=== PATIENT | male | born 1945 | race Two or more races ===

== ENCOUNTER 2021-04-28 16:44 | Inpatient (IN) | payer MEDICARE, OTHER ==
[~2021-04-28] VITALS: Ht 167.6 cm; Wt 73.9 kg
--- NOTE | 2021-04-28 18:01 | NUR ---
PT CAME IN C/O LLQ PAIN AND CONSTIPATION FOR 7 DAYS.PT IS A/O X4. PT CONNECTED TO MONITOR.
[2021-04-28 18:55] LABS: BILIRUBIN,URINE SMALL (NEGATIVE); COLOR,URINE YELLOW (YELLOW); LEUKOCYTE ESTERASE ,URINE NEGATIVE (NEGATIVE); NITRITE, URINE NEGATIVE (NEGATIVE); PROTEIN,URINE 100 mg/dl (NEGATIVE); UGLUCOSE NEGATIVE (NEGATIVE); UROBILINOGEN,URINE 0.2 EU/dL (0.2)
[2021-04-28] MEDS ORDERED: MORPHINE SULFATE INJ 2 MG/ML DISP.SYRIN IV ONE ×2 (19:00→21:30)
[2021-04-28 19:02] LABS: CALCIUM, SERUM 9.2 mg/dL (8.5-10.1); CARBON DIOXIDE 25 mmol/L (21-32); CHLORIDE 103 mmol/L (98-107); GLUCOSE 99 mg/dL (74-106); POTASSIUM 3.6 mmol/L (3.5-5.1); SODIUM SERUM 137 mmol/L (136-145); UREA NITROGEN, BLOOD 38 mg/dL (7-18)
[2021-04-28] MEDS ORDERED: MORPHINE SULFATE INJ 2 MG/ML DISP.SYRIN ONE ×2 (19:06→21:29)
[2021-04-28 19:08] LABS: ALANINE AMINOTRANSFERASE 25 U/L (12-78); ALBUMIN 4.2 g/dL (3.4-5.0); ALKALINE PHOSPHATASE 76 U/L (46-116); ASPARTATE AMINOTRANSFERASE 18 U/L (15-37); BILIRUBIN,DIRECT 0.3 mg/dL (0.0-0.2); BILIRUBIN,TOTAL 2.3 mg/dL (0.2-1.0); LIPASE 71 U/L (73-393); TOTAL PROTEIN, SERUM 8.1 g/dL (6.4-8.2)
[2021-04-28 19:29] LABS: BACTERIA,URINE None seen /HPF (None Seen); SQUAMOUS EPITHELIAL CELL,UR Few /HPF (None Seen); WBC,URINE 0-2 /HPF (0-3)
[2021-04-28 19:30] LABS: HYALINE CASTS, URINE Few /LPF (None Seen); MUCUS,URINE Moderate /LPF (None Seen)
[2021-04-28 19:43] LABS: BASOPHILS % (AUTO) 0.4 % (0.0-2.0); EOSINOPHILS % (AUTO) 1.9 % (0.0-6.0); HEMATOCRIT 44 % (39-51); HEMOGLOBIN 14.7 g/dL (13.5-17.5); LYMPHOCYTES # (AUTO) 1.3 K/uL (0.8-4.8); LYMPHOCYTES % (AUTO) 14.5 % (20.0-44.0); MEAN CORPUSCULAR HGB CONC 33 g/dl (31.0-36.0); MEAN CORPUSCULAR VOLUME 92 fL (80-96); MONOCYTES # (AUTO) 0.8 K/uL (0.1-1.30); NEUTROPHILS # (AUTO) 6.6 K/uL (1.8-8.9); NEUTROPHILS % (AUTO) 74.2 % (43.0-81.0); PLATELET COUNT (AUTO) 178 K/uL (150-450); RED BLOOD CELL COUNT(AUTO) 4.82 MIL/uL (4.5-6.0); WHITE BLOOD COUNT (AUTO) 8.9 K/uL (4.3-11.0)
--- NOTE | 2021-04-28 20:08 | NUR ---
PT TAKEN TO CT VIA REECE
[2021-04-28] MEDS ORDERED: CEFEPIME 1 GM VIAL ONE (21:28)
[2021-04-28] MEDS ORDERED: METRONIDAZOLE 500MG/ NS 100ML 100 ML IV ONE ×2 (21:28→21:30)
[2021-04-28] MEDS ORDERED: CEFEPIME 1 GM in IV D5W 50 ML IV ONE (21:30)
[2021-04-28] MEDS ORDERED: IV NS 0.9% 500 ML BAG IV ONE (21:30)
--- NOTE | 2021-04-28 21:56 | NUR ---
PT WILL GO TO OR THEN AFTER ROOM 306 PER RN COWLMAN
--- NOTE | 2021-04-28 22:26 | NUR ---
OUTBOUND SUPERVISOR AT PT'S BEDSIDE
[2021-04-28] MEDS ORDERED: MAGNESIUM HYDROXIDE 30 ML UDC PO PRN (22:30)
[2021-04-28] MEDS ORDERED: MAG HYDROX/AL HYDROX/SIMETH 30 ML UDC PO PRN (22:30)
[2021-04-28] MEDS ORDERED: ONDANSETRON HCL/PF 4 MG/2 ML VIAL IVP PRN (22:30)
[2021-04-28] MEDS ORDERED: Z GUARD REMEDY 4 OZ OINT TP PRN (22:30)
[2021-04-28] MEDS ORDERED: IV D5/0.45 NACL 1,000 ML IV PRN (22:30)
[2021-04-28] MEDS ORDERED: ACETAMINOPHEN 325 MG TABLET PO PRN (22:30)
[2021-04-28] MEDS: ENOXAPARIN SODIUM 30 MG/0.3 ML DISP.SYRIN SQ SCH (22:30)
[2021-04-28] MEDS ORDERED: FENTANYL PF 250MCG/5ML AMPUL ONE (22:46)
[2021-04-28] MEDS ORDERED: HYDROMORPHONE INJ 2 MG/ML DISP.SYRIN ONE (22:46)
[2021-04-28] MEDS ORDERED: MIDAZOLAM HCL 2 MG/2ML VIAL ONE (22:47)
[2021-04-28] MEDS ORDERED: PANTOPRAZOLE 40 MG VIAL ONE (22:47)
[2021-04-28] MEDS: PANTOPRAZOLE 40 MG VIAL IV SCH (22:47)
[2021-04-28] MEDS ORDERED: FAMOTIDINE/PF INJ 20 MG/2 ML VIAL IV ONE (22:47)
[2021-04-28] MEDS ORDERED: ROCURONIUM BROMIDE 50 MG/5 ML ONE (22:48)
--- NOTE | 2021-04-28 22:48 | NUR ---
lovenox not given pt is going for sx.
--- NOTE | 2021-04-28 22:52 | NUR ---
PT SEEN BY DR. RAO
--- NOTE | 2021-04-28 22:52 | NUR ---
Richard verdin in [facility] - 04/28/21 at 2324 by ESTRELLA PT SEEN BY DR. PRAJAPATI
--- NOTE | 2021-04-28 23:18 | NUR ---
PT IS BEING WHEELED TO OR BY OR TECH
[2021-04-28] MEDS ORDERED: LIDOCAINE 1% INJ 50 ML MDV IJ ONE (23:27)
[2021-04-28] MEDS ORDERED: BUPIVACAINE MPF W/EPI 0.25% 30 ML VIAL ONE (23:27)
[2021-04-29] VITALS (9 sets, daily range): BP systolic 92–142; BP diastolic 54–65
[2021-04-29] MEDS ORDERED: BACITRACIN/POLYMYXIN B 15 GM TUBE TP ONE (01:02)
--- NOTE | 2021-04-29 02:30 | NUR ---
RN NOTES RECEIVED PATIENT FROM RECOVERY, S/P LEFT INGUINAL HERNIA REPAIR, CONFUSED, SCREAMING, UNCOOPERATIVE, 2LPM VIA NC, NO COMPLAIN OF PAIN, WANTS TO GET OUT OF BED, ABDOMINAL INCISION X3, WITH DEANN, ISLAND DRESSING, NO BLEEDING, ON CLEAR LIQUID DIET, DUE TO VOID, PUT ON 4LPM VIA NC, TO KEEP SPO2 AT 96%, POST OP VS, KEPT SAFE, WILL CONTINUE TO MONITOR.
[2021-04-29] MEDS: MORPHINE SULFATE INJ 2 MG/ML DISP.SYRIN IV PRN (04:44)
[2021-04-29] MEDS ORDERED: METRONIDAZOLE 500MG/ NS 100ML 100 ML IV ONE (04:57)
[2021-04-29] MEDS ORDERED: METRONIDAZOLE 500MG/ NS 100ML 500 MG in PREMIX 1 EA IV SCH ×3 (05:00)
[2021-04-29 07:19] LABS: BASOPHILS % (AUTO) 0.2 % (0.0-2.0); EOSINOPHILS % (AUTO) 0.2 % (0.0-6.0); HEMATOCRIT 39 % (39-51); HEMOGLOBIN 12.7 g/dL (13.5-17.5); LYMPHOCYTES # (AUTO) 0.5 K/uL (0.8-4.8); LYMPHOCYTES % (AUTO) 3.5 % (20.0-44.0); MEAN CORPUSCULAR HGB CONC 32 g/dl (31.0-36.0); MEAN CORPUSCULAR VOLUME 93 fL (80-96); MONOCYTES # (AUTO) 0.9 K/uL (0.1-1.30); MONOCYTES % (AUTO) 5.6 % (2.0-12.0); NEUTROPHILS % (AUTO) 90.5 % (43.0-81.0); PLATELET COUNT (AUTO) 142 K/uL (150-450); RED BLOOD CELL COUNT(AUTO) 4.23 MIL/uL (4.5-6.0); WHITE BLOOD COUNT (AUTO) 15.5 K/uL (4.3-11.0)
--- NOTE | 2021-04-29 07:30 | NUR ---
ALERT/ORIENTED X3, IMPROVED MENTATION, MORE CALM, COOPERATIVE, AWARE OF SITUATION, ABDOMINAL INCISION X3, NO BLEEDING, DUE TO VOID, VS STABLE, TITRATED O2 TO 2LPM VIA NC, DRINKING FLUIDS, REGULAR DIET FOR BREAKFAST, CONTINUE PAIN MANAGEMENT. ENCOURAGE AMBULATION
[2021-04-29 07:56] LABS: CARBON DIOXIDE 23 mmol/L (21-32); CHLORIDE 107 mmol/L (98-107); CREATININE 1.9 mg/dL (0.6-1.3); GLUCOSE 129 mg/dL (74-106); MAGNESIUM 2.2 mg/dL (1.8-2.4); PHOSPHORUS 4.6 mg/dL (2.5-4.9); POTASSIUM 3.8 mmol/L (3.5-5.1); SODIUM SERUM 139 mmol/L (136-145); UREA NITROGEN, BLOOD 34 mg/dL (7-18)
--- NOTE | 2021-04-29 08:00 | NUR ---
RN NOTES PATIENT BP 89/55; SPOKE W/ DR. RAO AND DR. HANSON. DR. CEBALLOS W/ ORDER FOR STAT EKG. CURRENTLY ON IV FLUIDS; HOB PLACED ON LOW-OQUENDO'S AT THIS TIME.
[2021-04-29] MEDS: PANTOPRAZOLE 40 MG VIAL IV SCH (08:32)
[2021-04-29] MEDS: CEFTRIAXONE 1 G in IV D5W 50 ML IV SCH (08:42)
[2021-04-29 08:43] LABS: THYROID STIMULATING HORMONE 1.975 uIU/mL (0.358-3.74)
[2021-04-29] MEDS ORDERED: IV NS 0.9% 1,000 ML IV PRN (09:00)
--- NOTE | 2021-04-29 09:16 | NUR ---
RN NOTES BP RE-CHECKED 94/58, HR-75; RESTING IN BED, NOT IN ACUTE DISTRESS. FINISHED EATING BREAKFAST.
[2021-04-29 10:36] LABS: THYROID STIMULATING HORMONE 2.176 uIU/mL (0.358-3.74)
--- NOTE | 2021-04-29 12:12 | NUR ---
RN NOTES PATIENT SEEN BY DR. MAIRA Armas/ ORDERS NOTED.
[2021-04-29] MEDS: IBUPROFEN 400 MG TABLET PO SCH ×3 (12:18→20:30)
[2021-04-29] MEDS: GABAPENTIN 300 MG CAPSULE PO SCH ×3 (12:18→20:20)
[2021-04-29] MEDS: METRONIDAZOLE 500 MG TABLET PO SCH ×2 (12:18→21:52)
[2021-04-29] MEDS: ACETAMINOPHEN 325 MG TABLET PO SCH ×3 (12:18→20:20)
--- NOTE | 2021-04-29 12:38 | NUR ---
RN NOTES PATIENT ABLE TO AMBULATE W/ STAND BY ASSIST TO THE BATHROOM; PER PATIENT, HE WAS ABLE TO URINATE BUT LITTLE AMOUNT ONLY.
--- NOTE | 2021-04-29 15:06 | NUR ---
RN NOTES PATIENT REQUESTED FOR BLOOD SUGAR TO BE TAKEN; ACCU-CHECK DONE, 171MG/DL, JUST FINISHED EATING SNACK EARLIER. PATIENT VERBALIZED UNDERSTANDING.
--- NOTE | 2021-04-29 16:52 | NUR ---
RN NOTES PATIENT SEEN AGAIN BY DR. RAO. PER MD, PATIENT STAYS TONIGHT UNTIL WBC TRENDS DOWN. ORDER FOR PYRIDIUM NOTED.
[2021-04-29] MEDS: PHENAZOPYRIDINE HCL 200 MG TABLET PO SCH ×2 (17:11→21:52)
--- NOTE | 2021-04-29 18:58 | NUR ---
RN NOTES AMBULATES W/ STEADY GAIT. SAFETY MEASURES MAINTAINED. INFORMED PATIENT TO AMBULATE TOLERATED AND USE RESTROOM WHEN APPLICABLE. NO COMPLAINT OF PAIN AT THIS TIME. WILL ENDORSE TO [facility] BONER FOR ALEX.
--- NOTE | 2021-04-29 19:50 | NUR ---
MS RN OPENING NOTE PATIENT AWAKE IN ROOM, ALERT/ORIENTED X 3, PT ABLE TO MAKE NEEDS KNOWN. PATIENT DENIES PAIN AT THIS TIME. PATIENT STABLE ON RA, NO S/S OF DISTRESS OR SOB NOTED, BREATHING EVEN AND UNLABORED, SPO2: 97%. NO IV ACCESS NOTED, PER DAY SHIFT NURSE MD AWARE. DRESSING ON ABDOMINAL INCISIONS X 3 CLEAN, DRY AND INTACT. PATIENT AMBULATORY. SAFETY MEASURES IN PLACE: CALL LIGHT WITHIN REACH, SIDE RAILS UP X 2, BED LOCKED IN LOW POSITION, BED ALARM ON. WILL CONTINUE TO MONITOR PATIENT
--- NOTE | 2021-04-29 21:00 | NUR ---
MS RN NOTE PATIENT REFUSED SCHEDULED TYLENOL 650 MG PO, MOTRIN 800 MG PO AND GABAPENTIN 300 MG PO. PER PATIENT HE IS NOT IN ANY PAIN, EXPLAINED RISKS AND BENEFITS TO PATIENT AND PATIENT VERBALIZED UNDERSTANDING. WASTED MEDICATIONS WITH CHARGE NURSE ONELIA. WILL CONTINUE TO MONITOR PATIENT
[2021-04-29] MEDS: ENOXAPARIN SODIUM 30 MG/0.3 ML DISP.SYRIN SQ SCH (21:53)
--- NOTE | 2021-04-30 02:10 | NUR ---
MS RN NOTE PATIENT COMPLAINING OF PAIN, NO IV ACCESS. CON[facility]ED [facility]ES MD WITH ORDER TO GIVE MORPHINE IM
[2021-04-30] MEDS: MORPHINE SULFATE INJ 2 MG/ML DISP.SYRIN IV PRN (02:12)
--- NOTE | 2021-04-30 02:17 | NUR ---
MS RN NOTE PATIENT REFUSED MORPHINE, STATED HE ONLY WANTS TYLENOL. WASTED MORPHINE WITH CHARGE NURSE ONELIA
[2021-04-30] MEDS: GABAPENTIN 300 MG CAPSULE PO SCH ×3 (03:38→20:34)
[2021-04-30] MEDS: IBUPROFEN 400 MG TABLET PO SCH ×3 (03:38→20:35)
[2021-04-30] MEDS: ACETAMINOPHEN 325 MG TABLET PO SCH ×3 (03:45→20:34)
--- NOTE | 2021-04-30 03:45 | NUR ---
MS RN NOTE DID NOT GIVE 4 AM SCHEDULED TYLENOL 650 MG BECAUSE PRN TYLENOL 650 MG GIVEN LESS THAN 2 HOURS AGO
[2021-04-30] MEDS: PHENAZOPYRIDINE HCL 200 MG TABLET PO SCH ×3 (05:39→21:54)
[2021-04-30] MEDS: METRONIDAZOLE 500 MG TABLET PO SCH ×3 (05:39→21:54)
--- NOTE | 2021-04-30 05:46 | NUR ---
MS RN NOTE ATTEMPTED TO INSERT IV ACCESS BUT PATIENT REFUSED, EXPLAINED THAT IT IS NECESSARY TO INSERT IV FOR IV ANTIBIOTICS LATER THIS MORNING BUT PATIENT STATED "NO, NO, NO, LET ME SLEEP!"
--- NOTE | 2021-04-30 06:14 | NUR ---
MS RN NOTE PATIENT REFUSED AM LABS, EXPLAINED RISKS AND BENEFITS BUT PATIENT STILL REFUSED. LAB WILL ATTEMPT LAB DRAW LATER
--- NOTE | 2021-04-30 06:48 | NUR ---
MS RN CLOSING NOTE PATIENT SLEEPING IN BED, NO SIGNIFICANT CHANGES THROUGHOUT SHIFT. PATIENT REFUSED MANY THINGS THROUGHOUT SHIFT. PATIENT STABLE ON RA, NO S/S OF DISTRESS OR SOB NOTED, BREATHING EVEN AND UNLABORED. PT HAS NO IV ACCESS, ATTEMPTED TO INSERT IV BUT PATIENT REFUSED. MEDICATIONS GIVEN ORDERED, PT NEEDS MET THROUGHOUT SHIFT. SAFETY MEASURES IN PLACE: CALL LIGHT WITHIN REACH, SIDE RAILS UP X 2, BED LOCKED IN LOW POSITION, BED ALARM ON. WILL ENDORSE TO DAY SHIFT NURSE FOR CONTINUITY OF CARE
--- NOTE | 2021-04-30 07:39 | NUR ---
MS RN OPENING NOTE Patient in bed, asleep. A/O x 2-3. On room air, breathing evenly and unlabored. No SOB or s/s of distress noted. Abdominal incision dressing is c/d/i. No IV access at this time, patient refusing. Safety precautions in place: bed in low, locked position; siderails up x 2; call light within reach. Will continue to monitor.
[2021-04-30 08:00] VITALS: BP 90/44
[2021-04-30] MEDS: PANTOPRAZOLE 40 MG TABLET.DR PO SCH (08:41)
[2021-04-30 08:49] LABS: BASOPHILS # (AUTO) 0.1 K/uL (0.0-0.2); BASOPHILS % (AUTO) 0.9 % (0.0-2.0); EOSINOPHILS % (AUTO) 4.1 % (0.0-6.0); HEMATOCRIT 36 % (39-51); HEMOGLOBIN 11.5 g/dL (13.5-17.5); LYMPHOCYTES # (AUTO) 1.6 K/uL (0.8-4.8); LYMPHOCYTES % (AUTO) 18.8 % (20.0-44.0); MEAN CORPUSCULAR HGB CONC 33 g/dl (31.0-36.0); MEAN CORPUSCULAR VOLUME 93 fL (80-96); MONOCYTES # (AUTO) 1.1 K/uL (0.1-1.30); MONOCYTES % (AUTO) 13.4 % (2.0-12.0); NEUTROPHILS # (AUTO) 5.2 K/uL (1.8-8.9); NEUTROPHILS % (AUTO) 62.8 % (43.0-81.0); PLATELET COUNT (AUTO) 121 K/uL (150-450); RED BLOOD CELL COUNT(AUTO) 3.82 MIL/uL (4.5-6.0); WHITE BLOOD COUNT (AUTO) 8.3 K/uL (4.3-11.0)
[2021-04-30] MEDS: CEFTRIAXONE 1 G in IV D5W 50 ML IV SCH (09:00)
--- NOTE | 2021-04-30 09:00 | NUR ---
RN NOTE Patient refused IV insertion, IV antibiotic not given. Dr. Richa murillo.
--- NOTE | 2021-04-30 09:00 | NUR ---
RN NOTE Patient's BP is 90/44, Dr. Chaudhry and Dr. Rucker notified; no new orders given. Patient has no IV access, refusing. Will continue to monitor patient.
[2021-04-30 09:11] LABS: CREATINE KINASE, TOTAL 404 U/L (39-308)
[2021-04-30 09:27] LABS: ALANINE AMINOTRANSFERASE 16 U/L (12-78); ALBUMIN 2.7 g/dL (3.4-5.0); ALKALINE PHOSPHATASE 54 U/L (46-116); ASPARTATE AMINOTRANSFERASE 44 U/L (15-37); BILIRUBIN,TOTAL 0.7 mg/dL (0.2-1.0); CARBON DIOXIDE 21 mmol/L (21-32); CHLORIDE 106 mmol/L (98-107); CREATININE 3.2 mg/dL (0.6-1.3); GLUCOSE 118 mg/dL (74-106); MAGNESIUM 2.4 mg/dL (1.8-2.4); POTASSIUM 3.7 mmol/L (3.5-5.1); SODIUM SERUM 134 mmol/L (136-145); TOTAL PROTEIN, SERUM 5.7 g/dL (6.4-8.2); UREA NITROGEN, BLOOD 46 mg/dL (7-18)
--- NOTE | 2021-04-30 10:00 | NUR ---
RN NOTE Patient still refusing IV insertion, educated on risks and benefits of having an IV access while inpatient, patient still refused. Dr. Chaim murillo.
[2021-04-30 11:03] LABS: BILIRUBIN,URINE NEGATIVE (NEGATIVE); COLOR,URINE ORANGE (YELLOW); LEUKOCYTE ESTERASE ,URINE NEGATIVE (NEGATIVE); NITRITE, URINE POSITIVE (NEGATIVE); PROTEIN,URINE 100 mg/dl (NEGATIVE); UGLUCOSE 100 MG/DL mg/dL (NEGATIVE)
[2021-04-30 11:17] LABS: SQUAMOUS EPITHELIAL CELL,UR Rare /HPF (None Seen)
[2021-04-30 11:24] LABS: BACTERIA,URINE Rare /HPF (None Seen)
--- NOTE | 2021-04-30 12:00 | NUR ---
RN NOTE Patient's BP is 112/50, increased form previous. Dr. Rucker made aware.
[2021-04-30 12:26] LABS: EOSINOPHIL,URINE None Seen
[2021-04-30 16:00] VITALS: BP 96/54
[2021-04-30 16:24] LABS: CREATININE, URINE 154.8 MG/DL (30.0-125.0); URINE SODIUM, RANDOM 21 mmol/l (40-220); URINE TOTAL PROTEIN 126.7 mg/dL (0-11.9)
--- NOTE | 2021-04-30 18:46 | NUR ---
MS RN CLOSING NOTE Patient in bed, resting comfortably. A/O x 2-3, able to make needs known. Stable on room air, breathing evenly and unlabored. No SOB or s/s of distress noted. Abdominal incision dressing is c/d/i. No IV access at this time, patient refusing; Dr. Rucker and Dr. Chaudhry aware. All needs attended to. Due meds given. Safety precautions maintained: bed in low, locked position; siderails up x 2; call light within reach. Will endorse to director of audiology nurse for ALEX.
[2021-04-30 20:00] VITALS: BP 131/73
--- NOTE | 2021-04-30 20:00 | NUR ---
MS RN OPENING NOTE PATIENT AWAKE IN ROOM, ALERT/ORIENTED X 3, PT ABLE TO MAKE NEEDS KNOWN. PATIENT DENIES PAIN AT THIS TIME. PATIENT STABLE ON RA, NO S/S OF DISTRESS OR SOB NOTED, BREATHING EVEN AND UNLABORED. NO IV ACCESS NOTED, PER DAY SHIFT NURSE MD AWARE. DRESSING ON ABDOMINAL INCISIONS X 3 CLEAN, DRY AND INTACT. PATIENT AMBULATORY AND STEADY. SAFETY MEASURES IN PLACE: CALL LIGHT WITHIN REACH, SIDE RAILS UP X 2, BED LOCKED IN LOW POSITION, TABLE WITHIN REACH. WILL CONTINUE TO MONITOR PATIENT
[2021-04-30] MEDS: ENOXAPARIN SODIUM 30 MG/0.3 ML DISP.SYRIN SQ SCH (21:00)
--- NOTE | 2021-04-30 22:00 | NUR ---
MS RN NOTE PATIENT REFUSED LOVENOX, EXPLAINED RISKS AND BENEFITS BUT PATIENT STILL REFUSED
[2021-05-01] MEDS: IBUPROFEN 400 MG TABLET PO SCH ×4 (04:42→20:30)
[2021-05-01] MEDS: ACETAMINOPHEN 325 MG TABLET PO SCH ×4 (04:42→20:00)
[2021-05-01] MEDS: GABAPENTIN 300 MG CAPSULE PO SCH ×4 (04:42→20:00)
--- NOTE | 2021-05-01 05:00 | NUR ---
MS RN NOTE PATIENT REFUSED SCHEDULED TYLENOL 650 MG PO, MOTRIN 800 MG PO AND GABAPENTIN 300 MG PO. PER PATIENT HE IS NOT IN ANY PAIN, EXPLAINED RISKS AND BENEFITS TO PATIENT AND PATIENT VERBALIZED UNDERSTANDING. WILL CONTINUE TO MONITOR PATIENT
[2021-05-01] MEDS: PHENAZOPYRIDINE HCL 200 MG TABLET PO SCH ×3 (05:26→21:27)
[2021-05-01] MEDS: METRONIDAZOLE 500 MG TABLET PO SCH ×3 (05:26→21:27)
--- NOTE | 2021-05-01 06:34 | NUR ---
MS RN NOTE LAB CALLED WITH CRITICAL LAB CK-MB = 36.9. NOTIFIED INSURANCE VERIFICATION CLERK MD, NO NEW ORDERS
[2021-05-01 06:37] LABS: BASOPHILS % (AUTO) 0.3 % (0.0-2.0); EOSINOPHILS % (AUTO) 4.4 % (0.0-6.0); HEMATOCRIT 33 % (39-51); HEMOGLOBIN 11.1 g/dL (13.5-17.5); LYMPHOCYTES # (AUTO) 1.5 K/uL (0.8-4.8); MEAN CORPUSCULAR HGB CONC 34 g/dl (31.0-36.0); MEAN CORPUSCULAR VOLUME 91 fL (80-96); MONOCYTES # (AUTO) 1.1 K/uL (0.1-1.30); MONOCYTES % (AUTO) 14.3 % (2.0-12.0); NEUTROPHILS # (AUTO) 4.4 K/uL (1.8-8.9); PLATELET COUNT (AUTO) 112 K/uL (150-450); RED BLOOD CELL COUNT(AUTO) 3.62 MIL/uL (4.5-6.0); WHITE BLOOD COUNT (AUTO) 7.3 K/uL (4.3-11.0)
--- NOTE | 2021-05-01 06:38 | NUR ---
MS RN CLOSING NOTE PATIENT AWAKE IN ROOM, PT ABLE TO MAKE NEEDS KNOWN. PATIENT STABLE ON RA, NO S/S OF DISTRESS OR SOB NOTED, BREATHING EVEN AND UNLABORED. PT HAS NO IV ACCESS, PATIENT REFUSED. MEDICATIONS GIVEN ORDERED, PT NEEDS MET THROUGHOUT SHIFT. PATIENT STATED HE HAS NOT HAD BOWEL MOVEMENT IN 3 DAYS, MILK OF MAGNESIA GIVEN LAST NIGHT, STILL NO BM THIS SHIFT. SAFETY MEASURES IN PLACE: CALL LIGHT WITHIN REACH, SIDE RAILS UP X 2, BED LOCKED IN LOW POSITION, BED ALARM ON. WILL ENDORSE TO DAY SHIFT NURSE FOR CONTINUITY OF CARE
[2021-05-01 06:58] LABS: ALANINE AMINOTRANSFERASE 22 U/L (12-78); ALBUMIN 2.9 g/dL (3.4-5.0); ALKALINE PHOSPHATASE 61 U/L (46-116); ASPARTATE AMINOTRANSFERASE 69 U/L (15-37); BILIRUBIN,TOTAL 0.6 mg/dL (0.2-1.0); CALCIUM, SERUM 7.8 mg/dL (8.5-10.1); CARBON DIOXIDE 24 mmol/L (21-32); CHLORIDE 107 mmol/L (98-107); CREATININE 3.2 mg/dL (0.6-1.3); GLUCOSE 128 mg/dL (74-106); MAGNESIUM 2.5 mg/dL (1.8-2.4); PHOSPHORUS 3.7 mg/dL (2.5-4.9); POTASSIUM 3.7 mmol/L (3.5-5.1); SODIUM SERUM 136 mmol/L (136-145); UREA NITROGEN, BLOOD 48 mg/dL (7-18)
[2021-05-01 08:00] VITALS: BP 145/74
--- NOTE | 2021-05-01 08:18 | NUR ---
MS RN OPENING NOTE Patient in bed, awake. A/O x 2-3, able to make needs known. On room air, breathing evenly and unlabored. No SOB or s/s of distress noted. Abdominal incision dressing is c/d/i. No IV access at this time, patient refusing. Safety precautions in place: bed in low, locked position; siderails up x 2; call light within reach. Will continue to monitor.
[2021-05-01] MEDS: PANTOPRAZOLE 40 MG TABLET.DR PO SCH (08:53)
[2021-05-01] MEDS: CEFTRIAXONE 1 G in IV D5W 50 ML IV SCH (09:00)
--- NOTE | 2021-05-01 09:00 | NUR ---
RN NOTE Patient still refusing insertion of IV. IV Rocephin not given. Dr. Chaudhry aware of patient's refusal.
[2021-05-01] MEDS ORDERED: MAGNESIUM CITRATE 296 ML BOTTLE PO ONE (10:30)
--- NOTE | 2021-05-01 14:06 | NUR ---
RN NOTE Patient agreed to IV insertion. IV access now on LFA #20 infusing NS at 75 ml/hr.
[2021-05-01 16:00] VITALS: BP 157/75
--- NOTE | 2021-05-01 18:53 | NUR ---
MS RN CLOSING NOTE Patient in bed, awake. A/O x 2-3, able to make needs known. Stable on room air, breathing evenly and unlabored. No SOB or s/s of distress noted. Abdominal incision dressing is c/d/i. IV access on LFA #20G infusing NS at 75 ml/hr. All needs attended to. Due meds given. Safety precautions maintained: bed in low, locked position; siderails up x 2; call light within reach. Will endorse to second shift supervisor nurse for ALEX.
[2021-05-01 20:00] VITALS: BP 147/75
--- NOTE | 2021-05-01 20:00 | NUR ---
MS RN OPENING NOTE PATIENT AWAKE CURRENTLY AMBULATING IN HALLWAY, ALERT/ORIENTED X 3, PT ABLE TO MAKE NEEDS KNOWN. PATIENT DENIES PAIN AT THIS TIME. PATIENT STABLE ON RA, NO S/S OF DISTRESS OR SOB NOTED, BREATHING EVEN AND UNLABORED. LEFT FOREARM #20G INTACT AND FLUSHING WELL, CURRENTLY OFF IVF BECAUSE PT AMBULATING IN HALLWAY HOWEVER EXPLAINED TO PATIENT HE WILL NEED TO BE RECONNECTED TO IVF ONCE HE'S BACK IN BED, PT VERBALIZED UNDERSTANDING. DRESSING ON ABDOMINAL INCISIONS X 3 CLEAN, DRY AND INTACT. PATIENT AMBULATORY AND STEADY. SAFETY MEASURES IN PLACE: CALL LIGHT WITHIN REACH, SIDE RAILS UP X 2, BED LOCKED IN LOW POSITION, TABLE WITHIN REACH. WILL CONTINUE TO MONITOR PATIENT
[2021-05-01] MEDS: ENOXAPARIN SODIUM 30 MG/0.3 ML DISP.SYRIN SQ SCH (20:34)
--- NOTE | 2021-05-01 20:34 | NUR ---
MS RN NOTE PATIENT REFUSED SCHEDULED TYLENOL 650 MG PO, MOTRIN 800 MG PO AND GABAPENTIN 300 MG PO. PER PATIENT HE IS NOT IN ANY PAIN. PATIENT ALSO REFUSED PROPHYLAXIS LOVENOX, EXPLAINED RISKS AND BENEFITS TO PATIENT AND PATIENT STILL REFUSED. WILL CONTINUE TO MONITOR PATIENT
[2021-05-02] MEDS: GABAPENTIN 300 MG CAPSULE PO SCH ×2 (04:00→12:00)
[2021-05-02] MEDS: ACETAMINOPHEN 325 MG TABLET PO SCH ×2 (04:00→12:00)
[2021-05-02] MEDS: IBUPROFEN 400 MG TABLET PO SCH ×2 (04:30→12:04)
[2021-05-02] MEDS: METRONIDAZOLE 500 MG TABLET PO SCH ×2 (05:33→12:56)
[2021-05-02] MEDS: PHENAZOPYRIDINE HCL 200 MG TABLET PO SCH ×3 (05:33→12:58)
[2021-05-02 06:23] LABS: BASOPHILS % (AUTO) 0.6 % (0.0-2.0); EOSINOPHILS % (AUTO) 5.8 % (0.0-6.0); HEMATOCRIT 34 % (39-51); HEMOGLOBIN 11.3 g/dL (13.5-17.5); LYMPHOCYTES # (AUTO) 1.4 K/uL (0.8-4.8); LYMPHOCYTES % (AUTO) 22.1 % (20.0-44.0); MEAN CORPUSCULAR HGB CONC 33 g/dl (31.0-36.0); MEAN CORPUSCULAR VOLUME 92 fL (80-96); MONOCYTES # (AUTO) 0.9 K/uL (0.1-1.30); MONOCYTES % (AUTO) 13.1 % (2.0-12.0); NEUTROPHILS # (AUTO) 3.8 K/uL (1.8-8.9); NEUTROPHILS % (AUTO) 58.4 % (43.0-81.0); PLATELET COUNT (AUTO) 139 K/uL (150-450); RED BLOOD CELL COUNT(AUTO) 3.71 MIL/uL (4.5-6.0); WHITE BLOOD COUNT (AUTO) 6.5 K/uL (4.3-11.0)
--- NOTE | 2021-05-02 07:00 | NUR ---
MS RN CLOSING NOTE PATIENT SLEEPING IN BED, NO SIGNIFICANT CHANGES THROUGHOUT SHIFT, PT ALERT/ORIENTED X 3 BUT FORGETFUL AT TIMES. PATIENT DENIED PAIN THROUGHOUT SHIFT. PATIENT STABLE ON RA, NO S/S OF DISTRESS OR SOB NOTED, BREATHING EVEN AND UNLABORED. LEFT FOREARM #20G INTACT AND INFUSING NS @ 75 ML/HR. DRESSING ON ABDOMINAL INCISIONS X 3 CLEAN, DRY AND INTACT. MEDICATIONS GIVEN ORDERED, PT NEEDS MET THROUGHOUT SHIFT. SAFETY MEASURES IN PLACE: CALL LIGHT WITHIN REACH, SIDE RAILS UP X 2, BED LOCKED IN LOW POSITION, TABLE WITHIN REACH. PT STATES THAT HE WAS NOT SEEN BY MD YESTERDAY AND WOULD LIKE TO SPEAK TO MD REGARDING ABDOMINAL DISTENTION AND SCROTAL SWELLING, ABDOMINAL X-RAY NO DEFINITE ABNORMALITIES IDENTIFIED. WILL ENDORSE TO DAY SHIFT NURSE FOR CONTINUITY OF CARE
--- NOTE | 2021-05-02 07:15 | NUR ---
RN OPENING NOTE PATIENT ASLEEP THOUGH EASILY AWAKENED. ALERT/ORIENTED X 3, PT ABLE TO MAKE NEEDS KNOWN. PATIENT DENIES PAIN AT THIS TIME. PATIENT STABLE ON RA, NO S/S OF DISTRESS OR SOB NOTED, BREATHING EVEN AND UNLABORED. LEFT FOREARM #20G DRESSING ON ABDOMINAL INCISIONS. SAFETY MEASURES IN PLACE: CALL LIGHT WITHIN REACH, SIDE RAILS UP X 2, BED LOCKED IN LOW POSITION, TABLE WITHIN REACH. WILL CONTINUE TO MONITOR PATIENT
[2021-05-02] MEDS: PANTOPRAZOLE 40 MG TABLET.DR PO SCH (07:41)
[2021-05-02 07:46] LABS: CALCIUM, SERUM 8.1 mg/dL (8.5-10.1); CARBON DIOXIDE 23 mmol/L (21-32); CHLORIDE 110 mmol/L (98-107); CREATININE 2.6 mg/dL (0.6-1.3); GLUCOSE 110 mg/dL (74-106); MAGNESIUM 2.5 mg/dL (1.8-2.4); PHOSPHORUS 3.5 mg/dL (2.5-4.9); POTASSIUM 4.1 mmol/L (3.5-5.1); SODIUM SERUM 141 mmol/L (136-145); UREA NITROGEN, BLOOD 42 mg/dL (7-18)
[2021-05-02 08:00] VITALS: BP 144/62
[2021-05-02] MEDS: CEFTRIAXONE 1 G in IV D5W 50 ML IV SCH (08:20)
[2021-05-02 13:07] LABS: *SPE A/G RATIO 0.9 (0.7-1.7); *SPE ALPHA-1-GLOBULIN 0.3 g/dL (0.0-0.4); *SPE ALPHA-2-GLOBULIN 0.8 g/dL (0.4-1.0); *SPE BETA GLOBULIN 0.8 g/dL (0.7-1.3); *SPE M-SPIKE Not Observed g/dL (Not Observed)
--- NOTE | 2021-05-02 16:50 | NUR ---
RN NOTE- PT DC AT THIS TIME . PT REFUSED TO GO TO SNF PREFERRING TO GO HOME. PT FRIEND PICKED PT UP IN PRIVATE AUTO. PT EXPLAINED BENEFITS OF GOING TO FACILITY. FLATLY REFUSED. IV REMOVED, WRISTBAND REMOVED. DC INSTRUCTIONS READ AND UNDERSTOOD . ESCORTED DOWNSTAIRS BY STAFF
== END 2021-05-02 16:46 | disposition home or self-care (01) | DRG 350 ==
LOC: ER 16:48 → TELE 22:11 → MED 22:48
PROVIDERS: ADMIT Nurse Practitioner Acute Care; ATTEND Internal Medicine
PROC: 0YU64JZ Supplement Left Inguinal Region with Synthetic Substitute, Percutaneous Endoscopic Approach (ICD-10-PCS; principal; 2021-04-29)
DX: K40.31 Unilateral inguinal hernia, with obstruction, without gangrene, recurrent (principal); N17.0 Acute kidney failure with tubular necrosis; E11.22 Type 2 diabetes mellitus with diabetic chronic kidney disease; I12.9 Hypertensive chronic kidney disease with stage 1 through stage 4 chronic kidney disease, or unspecified chronic kidney disease; N18.9 Chronic kidney disease, unspecified; F17.200 Nicotine dependence, unspecified, uncomplicated; E66.9 Obesity, unspecified; Z68.26 Body mass index [BMI] 26.0-26.9, adult; N13.9 Obstructive and reflux uropathy, unspecified; E80.6 Other disorders of bilirubin metabolism; N50.89 Other specified disorders of the male genital organs; K59.00 Constipation, unspecified
CPT/HCPCS: 36415; 71045-TC; 74018; 80048-TC; 80053-TC; 80061-TC; 80076-TC; 81001; 82550-TC; 82553; 82570-TC; 82728-TC; 82962-TC; 83540-TC; 83605-TC; 83690-TC; 83735-TC; 83880; 83970; 84100-TC; 84155; 84155-TC; 84165; 84300-TC; 84439-TC; 84443-TC; 85025-TC; 85730-TC; 86850-TC; 87040-TC; 87081-TC; 87086-TC; 93307-TC; A4216; C1874; C9113; C9803; G0378; J0690; J0692; J0696; J1170; J1650; J2250; J2270; J2405; J2704; J2765; J3010; J3490; J7030; J7050; J7060

== ENCOUNTER 2022-11-23 15:51 | Emergency (ER) | payer MEDICARE, OTHER ==
[~2022-11-23] VITALS: Ht 162.6 cm; Wt 68.5 kg
[2022-11-23 16:25] VITALS: TEMP 98.4
[2022-11-23 17:43] LABS: BASOPHILS # (AUTO) 0.1 K/uL (0.0-0.2); BASOPHILS % (AUTO) 0.8 % (0.0-2.0); EOSINOPHILS # (AUTO) 0.2 K/uL (0.0-0.7); EOSINOPHILS % (AUTO) 2.5 % (0.0-6.0); HEMATOCRIT 42 % (39-51); HEMOGLOBIN 13.6 g/dL (13.5-17.5); LYMPHOCYTES # (AUTO) 1.5 K/uL (0.8-4.8); LYMPHOCYTES % (AUTO) 19.8 % (20.0-44.0); MEAN CORPUSCULAR HEMOGLOBIN 30 PG (26.0-33.0); MEAN CORPUSCULAR HGB CONC 33 g/dl (31.0-36.0); MEAN CORPUSCULAR VOLUME 92 fL (80-96); MONOCYTES # (AUTO) 0.9 K/uL (0.1-1.30); MONOCYTES % (AUTO) 11.6 % (2.0-12.0); NEUTROPHILS # (AUTO) 5.1 K/uL (1.8-8.9); NEUTROPHILS % (AUTO) 65.3 % (43.0-81.0); PLATELET COUNT (AUTO) 153 K/uL (150-450); RED BLOOD CELL COUNT(AUTO) 4.52 MIL/uL (4.5-6.0); RED CELL DISTRIBUTION WIDTH 13.9 % (11.5-15.0); WHITE BLOOD COUNT (AUTO) 7.8 K/uL (4.3-11.0)
[2022-11-23 17:51] LABS: CALCIUM, SERUM 8.9 mg/dL (8.5-10.1); CARBON DIOXIDE 28 mmol/L (21-32); CHLORIDE 106 mmol/L (98-107); CREATININE 2.1 mg/dL (0.6-1.3); GLUCOSE 121 mg/dL (74-106); POTASSIUM 3.5 mmol/L (3.5-5.1); SODIUM SERUM 141 mmol/L (136-145); UREA NITROGEN, BLOOD 39 mg/dL (7-18)
[2022-11-23 18:55] VITALS: BP 142/64; O2SAT 100
== END 2022-11-23 20:28 | disposition left against medical advice (07) ==
LOC: EDUNIT# 15:51 → ER 15:57
DX: S40.022A Contusion of left upper arm, initial encounter (principal); Z60.2 Problems related to living alone; X58.XXXA Exposure to other specified factors, initial encounter; Y93.89 Activity, other specified; Y92.89 Other specified places as the place of occurrence of the external cause; Y99.8 Other external cause status
CPT/HCPCS: 36415; 73030-TC; 73200-TC; 80048-TC; 85025-TC

== ENCOUNTER 2023-01-20 09:27 | Inpatient (IN) | payer MEDICARE, OTHER ==
[~2023-01-20] VITALS: Ht 162.6 cm; Wt 69.4 kg
[2023-01-20] VITALS (7 sets, daily range): BP systolic 121–163; BP diastolic 54–95; TEMP 99.1; O2SAT 98–100
[2023-01-20] MEDS ORDERED: FENTANYL PF 100MCG/2ML AMPUL ONE (10:44)
[2023-01-20] MEDS ORDERED: FAMOTIDINE/PF INJ 20 MG/2 ML VIAL IV ONE (10:44)
[2023-01-20] MEDS ORDERED: SUCCINYLCHOLINE CHLORIDE 20 MG/ML VIAL ONE (10:45)
[2023-01-20] MEDS ORDERED: LIDOCAINE 1%-EPI 1:100,000 20 ML VIAL ONE (11:25)
[2023-01-20] MEDS ORDERED: BUPIVACAINE 0.5 % PF 150 MG/30 ML VIAL ONE (11:25)
[2023-01-20] MEDS ORDERED: ACETAMINOPHEN 325 MG TABLET PO ONE (14:00)
[2023-01-20] MEDS ORDERED: GABAPENTIN 300 MG CAPSULE PO ONE (14:00)
[2023-01-20] MEDS ORDERED: CELECOXIB 100 MG CAPSULE PO ONE (14:00)
[2023-01-20] MEDS: IV NS 0.9% 1,000 ML IV PRN (16:26)
[2023-01-20] MEDS ORDERED: ONDANSETRON HCL/PF 4 MG/2 ML VIAL IVP PRN (18:30)
[2023-01-20] MEDS ORDERED: ACETAMINOPHEN 325 MG TABLET PO PRN (18:30)
[2023-01-20] MEDS ORDERED: IPRATROPIUM NEB FS 0.5 MG/2.5 ML AMPUL.NEB NEB PRN (18:30)
[2023-01-20] MEDS ORDERED: MAGNESIUM HYDROXIDE 30 ML UDC PO PRN (18:30)
[2023-01-20] MEDS ORDERED: HYDROCODONE/APAP 5/325MG TABLET PO PRN (18:30)
[2023-01-20] MEDS ORDERED: Z GUARD REMEDY 4 OZ OINT TP PRN (18:30)
[2023-01-20] MEDS ORDERED: MAG HYDROX/AL HYDROX/SIMETH 30 ML UDC PO PRN (18:30)
[2023-01-20] MEDS ORDERED: ALBUTEROL FS 2.5 MG/0.5 ML VIAL.NEB NEB PRN (18:30)
[2023-01-20 18:46] LABS: ABG BASE EXCESS -7.2 mmol/L; ABG OXYGEN SATURATION 96.5 % (92.0-98.5); ABG PCO2 90.6 mmHg (35.0-45.0); ABG PH 7.062 (7.350-7.450); ABG PO2 124.2 mmHg (75.0-100.0); ABG TOTAL HEMOGLOBIN 13.8 G/dL (13.5-18.0); COHb 3.5 % (0.5-1.5); MetHb 0.3 % (0.0-1.5); O2Hb 92.8 % (94.0-97.0); SITE, ABG Right Radial
[2023-01-20 18:46] LABS: ABG BASE EXCESS -1.6 mmol/L; ABG OXYGEN SATURATION 87.4 % (92.0-98.5); ABG PH 7.312 (7.350-7.450); ABG PO2 56.5 mmHg (75.0-100.0); ABG TOTAL HEMOGLOBIN 13.7 G/dL (13.5-18.0); AaDO2 32.2 mmHg; COHb 2.9 % (0.5-1.5); MetHb 0.3 % (0.0-1.5); O2Hb 84.6 % (94.0-97.0); SITE, ABG Right Radial; VENT MODE, BG RA 21%
[2023-01-20 18:46] LABS: ABG BASE EXCESS -3.9 mmol/L; ABG OXYGEN SATURATION 95.7 % (92.0-98.5); ABG PCO2 61.9 mmHg (35.0-45.0); ABG PH 7.222 (7.350-7.450); ABG PO2 97.9 mmHg (75.0-100.0); ABG TOTAL HEMOGLOBIN 13.8 G/dL (13.5-18.0); AaDO2 116.1 mmHg; COHb 3.3 % (0.5-1.5); MetHb 0.3 % (0.0-1.5); O2Hb 92.3 % (94.0-97.0); SITE, ABG Right Radial
[2023-01-21] VITALS (13 sets, daily range): BP systolic 103–148; BP diastolic 40–86; TEMP 98.2–99.3; O2SAT 92–99
[2023-01-21 08:20] LABS: BASOPHILS % (AUTO) 0.4 % (0.0-2.0); EOSINOPHILS % (AUTO) 0.6 % (0.0-6.0); HEMATOCRIT 39 % (39-51); HEMOGLOBIN 12.6 g/dL (13.5-17.5); LYMPHOCYTES % (AUTO) 12.5 % (20.0-44.0); MEAN CORPUSCULAR HEMOGLOBIN 30 PG (26.0-33.0); MEAN CORPUSCULAR HGB CONC 32 g/dl (31.0-36.0); MEAN CORPUSCULAR VOLUME 93 fL (80-96); MONOCYTES # (AUTO) 0.9 K/uL (0.1-1.30); MONOCYTES % (AUTO) 12.3 % (2.0-12.0); NEUTROPHILS # (AUTO) 5.7 K/uL (1.8-8.9); NEUTROPHILS % (AUTO) 74.2 % (43.0-81.0); PLATELET COUNT (AUTO) 107 K/uL (150-450); RED CELL DISTRIBUTION WIDTH 14.3 % (11.5-15.0); WHITE BLOOD COUNT (AUTO) 7.6 K/uL (4.3-11.0)
[2023-01-21 08:35] LABS: CALCIUM, SERUM 8.3 mg/dL (8.5-10.1); CARBON DIOXIDE 26 mmol/L (21-32); CHLORIDE 105 mmol/L (98-107); GLUCOSE 112 mg/dL (74-106); MAGNESIUM 1.9 mg/dL (1.8-2.4); POTASSIUM 3.5 mmol/L (3.5-5.1); SODIUM SERUM 140 mmol/L (136-145); UREA NITROGEN, BLOOD 32 mg/dL (7-18)
[2023-01-21] MEDS ORDERED: ACETAMINOPHEN 325 MG TABLET PO SCH ×3 (09:00→13:00)
[2023-01-21] MEDS: ALBUTEROL FS 2.5 MG/0.5 ML VIAL.NEB NEB SCH ×3 (10:12→20:16)
[2023-01-21] MEDS: IPRATROPIUM NEB FS 0.5 MG/2.5 ML AMPUL.NEB NEB SCH ×3 (10:12→20:16)
[2023-01-21] MEDS: GABAPENTIN 300 MG CAPSULE PO SCH ×4 (10:23→20:25)
[2023-01-21] MEDS: CELECOXIB 100 MG CAPSULE PO SCH ×2 (10:23→20:21)
[2023-01-21] MEDS: ACETAMINOPHEN 325 MG TABLET PO SCH ×4 (10:33→20:25)
[2023-01-22] VITALS (7 sets, daily range): BP systolic 110–114; BP diastolic 52–69; TEMP 97.9–98.3; O2SAT 94–98
[2023-01-22] MEDS: ALBUTEROL FS 2.5 MG/0.5 ML VIAL.NEB NEB SCH ×2 (01:44→07:58)
[2023-01-22] MEDS: IPRATROPIUM NEB FS 0.5 MG/2.5 ML AMPUL.NEB NEB SCH ×2 (01:44→07:58)
[2023-01-22] MEDS: GABAPENTIN 300 MG CAPSULE PO SCH (04:51)
[2023-01-22] MEDS: ACETAMINOPHEN 325 MG TABLET PO SCH (04:51)
[2023-01-22] MEDS: IV NS 0.9% 1,000 ML IV PRN (05:22)
[2023-01-22 05:44] LABS: BASOPHILS % (AUTO) 0.5 % (0.0-2.0); EOSINOPHILS # (AUTO) 0.1 K/uL (0.0-0.7); HEMATOCRIT 38 % (39-51); HEMOGLOBIN 12.3 g/dL (13.5-17.5); LYMPHOCYTES # (AUTO) 1.2 K/uL (0.8-4.8); MEAN CORPUSCULAR HEMOGLOBIN 30 PG (26.0-33.0); MEAN CORPUSCULAR HGB CONC 32 g/dl (31.0-36.0); MEAN CORPUSCULAR VOLUME 92 fL (80-96); MONOCYTES # (AUTO) 0.9 K/uL (0.1-1.30); MONOCYTES % (AUTO) 12.6 % (2.0-12.0); NEUTROPHILS # (AUTO) 5.1 K/uL (1.8-8.9); NEUTROPHILS % (AUTO) 68.9 % (43.0-81.0); PLATELET COUNT (AUTO) 97 K/uL (150-450); RED BLOOD CELL COUNT(AUTO) 4.13 MIL/uL (4.5-6.0); RED CELL DISTRIBUTION WIDTH 13.7 % (11.5-15.0); WHITE BLOOD COUNT (AUTO) 7.3 K/uL (4.3-11.0)
[2023-01-22 06:03] LABS: CARBON DIOXIDE 26 mmol/L (21-32); CHLORIDE 106 mmol/L (98-107); POTASSIUM 3.6 mmol/L (3.5-5.1); SODIUM SERUM 139 mmol/L (136-145)
[2023-01-22 06:04] LABS: ALANINE AMINOTRANSFERASE 26 U/L (12-78); ALKALINE PHOSPHATASE 65 U/L (46-116); ASPARTATE AMINOTRANSFERASE 25 U/L (15-37); BILIRUBIN,TOTAL 1.2 mg/dL (0.2-1.0); CALCIUM, SERUM 8.3 mg/dL (8.5-10.1); CREATININE 2.4 mg/dL (0.6-1.3); GLUCOSE 129 mg/dL (74-106); MAGNESIUM 2.1 mg/dL (1.8-2.4); TOTAL PROTEIN, SERUM 6.5 g/dL (6.4-8.2); UREA NITROGEN, BLOOD 37 mg/dL (7-18)
[2023-01-22 06:13] LABS: CREATINE KINASE, TOTAL 276 U/L (39-308)
[2023-01-22] MEDS ORDERED: PANT40TA2 PO (08:39)
[2023-01-22 09:30] LABS: APPEARANCE,URINE SLIGHTLY CLOUDY (CLEAR); BILIRUBIN,URINE NEGATIVE (NEGATIVE); BLOOD, URINE 1+ Ery/uL (NEGATIVE); COLOR,URINE YELLOW (YELLOW); KETONES,URINE NEGATIVE (NEGATIVE); LEUKOCYTE ESTERASE ,URINE 2+ (NEGATIVE); NITRITE, URINE NEGATIVE (NEGATIVE); PROTEIN,URINE 2+ mg/dl (NEGATIVE); UGLUCOSE NEGATIVE (NEGATIVE); UROBILINOGEN,URINE 0.2 EU/dL (0.2)
[2023-01-22 09:51] LABS: ADD URINE CULTURE YES; BACTERIA,URINE Moderate /HPF (None Seen); SQUAMOUS EPITHELIAL CELL,UR Few /HPF (None Seen)
[2023-01-22 09:52] LABS: URINE AMORPHOUS PHOSPHATES Many /HPF (None Seen)
[2023-01-22 10:06] LABS: ANISOCYTOSIS 1+; EOSINOPHILS % (MANUAL) 4 % (0-4); LYMPHOCYTES % (MANUAL) 18 % (16-48); MONOCYTES % (MANUAL) 11 % (0-11.0); NEUTROPHILS % (MANUAL) 67 (42-76); PLATELET ESTIMATE DECREASED
[2023-01-22 10:07] LABS: OVALOCYTES OCC; TEAR DROP CELLS OCC
[2023-01-22 10:46] LABS: EOSINOPHIL,URINE None Seen
[2023-01-22 15:14] LABS: CREATININE, URINE < 13.0 MG/DL (30.0-125.0); URINE SODIUM, RANDOM 44 mmol/l (40-220)
[2023-01-22 15:29] LABS: URINE TOTAL PROTEIN 74.8 mg/dL (0-11.9)
[2023-01-23 07:06] LABS: PTH, INTACT 41 pg/mL (15-65)
[2023-01-24 11:07] LABS: *SPE ALBUMIN 3.1 g/dL (2.9-4.4); *SPE ALPHA-1-GLOBULIN 0.3 g/dL (0.0-0.4); *SPE ALPHA-2-GLOBULIN 0.8 g/dL (0.4-1.0); *SPE BETA GLOBULIN 0.9 g/dL (0.7-1.3); *SPE M-SPIKE Not Observed g/dL (Not Observed); *SPE PROTEIN TOTAL 6.1 g/dL (6.0-8.5)
== END 2023-01-22 11:10 | disposition home health service (06) | DRG 347 ==
LOC: DS 09:27 → ICU 16:25 → TELE1 01-21 04:18
PROVIDERS: ADMIT Surgery; ATTEND Internal Medicine
PROC: 0DBQ8ZX Excision of Anus, Via Natural or Artificial Opening Endoscopic, Diagnostic (ICD-10-PCS; principal; 2023-01-20)
PROC: 0DB98ZX Excision of Duodenum, Via Natural or Artificial Opening Endoscopic, Diagnostic (ICD-10-PCS; 2023-01-20)
PROC: 0DB68ZX Excision of Stomach, Via Natural or Artificial Opening Endoscopic, Diagnostic (ICD-10-PCS; 2023-01-20)
PROC: 0DB48ZX Excision of Esophagogastric Junction, Via Natural or Artificial Opening Endoscopic, Diagnostic (ICD-10-PCS; 2023-01-20)
PROC: 06BY4ZC Excision of Hemorrhoidal Plexus, Percutaneous Endoscopic Approach (ICD-10-PCS; 2023-01-20)
DX: K29.81 Duodenitis with bleeding (principal); G93.41 Metabolic encephalopathy; J96.01 Acute respiratory failure with hypoxia; J96.02 Acute respiratory failure with hypercapnia; K63.5 Polyp of colon; K64.3 Fourth degree hemorrhoids; D64.9 Anemia, unspecified; I12.9 Hypertensive chronic kidney disease with stage 1 through stage 4 chronic kidney disease, or unspecified chronic kidney disease; E11.22 Type 2 diabetes mellitus with diabetic chronic kidney disease; N18.30 Chronic kidney disease, stage 3 unspecified; K21.9 Gastro-esophageal reflux disease without esophagitis; K44.9 Diaphragmatic hernia without obstruction or gangrene; K22.70 Barrett's esophagus without dysplasia; K57.30 Diverticulosis of large intestine without perforation or abscess without bleeding; Z87.19 Personal history of other diseases of the digestive system; K64.4 Residual hemorrhoidal skin tags; M89.8X9 Other specified disorders of bone, unspecified site; N28.1 Cyst of kidney, acquired; J43.9 Emphysema, unspecified; F17.200 Nicotine dependence, unspecified, uncomplicated; G47.30 Sleep apnea, unspecified
CPT/HCPCS: 36415; 36600; 71045-TC; 76770-TC; 80048-TC; 80053-TC; 81001; 82550-TC; 82570-TC; 82803-TC; 82962-TC; 83735-TC; 83970; 84100-TC; 84155; 84165; 84300-TC; 85025-TC; 87086-TC; 94660; 94799-TC; A4223; A6253; A6402; A6403; G0378; J0330; J0690; J2310; J2405; J2704; J3010; J3490; J7030

== ENCOUNTER 2023-03-20 17:27 | Inpatient (IN) | payer MEDICARE, OTHER ==
[~2023-03-20] VITALS: Ht 160 cm; Wt 74.8 kg
[~2023-03-20 17:27] MED LIST: PANT40TA2 PO
[2023-03-20 18:00] LABS: BASOPHILS % (AUTO) 0.7 % (0.0-2.0); EOSINOPHILS # (AUTO) 0.1 K/uL (0.0-0.7); EOSINOPHILS % (AUTO) 1.3 % (0.0-6.0); HEMATOCRIT 45 % (39-51); HEMOGLOBIN 14.6 g/dL (13.5-17.5); LYMPHOCYTES # (AUTO) 1.3 K/uL (0.8-4.8); MEAN CORPUSCULAR HEMOGLOBIN 30 PG (26.0-33.0); MEAN CORPUSCULAR HGB CONC 33 g/dl (31.0-36.0); MEAN CORPUSCULAR VOLUME 91 fL (80-96); MONOCYTES # (AUTO) 0.6 K/uL (0.1-1.30); NEUTROPHILS # (AUTO) 4.4 K/uL (1.8-8.9); PLATELET COUNT (AUTO) 191 K/uL (150-450); RED BLOOD CELL COUNT(AUTO) 4.91 MIL/uL (4.5-6.0); RED CELL DISTRIBUTION WIDTH 15.7 % (11.5-15.0); WHITE BLOOD COUNT (AUTO) 6.4 K/uL (4.3-11.0)
[2023-03-20] MEDS ORDERED: MORPHINE SULFATE INJ 4 MG/ML DISP.SYRIN ONE (18:00)
[2023-03-20] MEDS ORDERED: ASPIRIN 300 MG/SUPP.RECT RC ONE (18:00)
[2023-03-20] MEDS: ONDANSETRON HCL/PF 4 MG/2 ML VIAL IVP ONE (18:00)
[2023-03-20] MEDS ORDERED: ONDANSETRON HCL/PF 4 MG/2 ML VIAL ONE (18:00)
[2023-03-20] MEDS ORDERED: ASPIRIN 81 MG TAB.CHEW ONE (18:01)
[2023-03-20] MEDS ORDERED: ASPIRIN EC 81 MG TABLET.DR PO ONE (18:12)
[2023-03-20] MEDS: ASPIRIN EC 81 MG TABLET.DR PO ONE (18:15)
[2023-03-20] MEDS: MORPHINE SULFATE INJ 2 MG/ML DISP.SYRIN IV ONE (18:15)
[2023-03-20 18:52] LABS: CARBON DIOXIDE 29 mmol/L (21-32); CHLORIDE 102 mmol/L (98-107); CREATININE 2.1 mg/dL (0.6-1.3); GLUCOSE 171 mg/dL (74-106); POTASSIUM 3.8 mmol/L (3.5-5.1); SODIUM SERUM 140 mmol/L (136-145); UREA NITROGEN, BLOOD 37 mg/dL (7-18)
[2023-03-20 19:08] LABS: NT-PRO BNP 772 pg/mL (0-125)
[2023-03-20] MEDS ORDERED: MAG HYDROX/AL HYDROX/SIMETH 30 ML UDC PO PRN (21:30)
[2023-03-20] MEDS ORDERED: DEXTROSE 50%-WATER 50 ML DISP.SYRIN IV PRN (21:30)
[2023-03-20] MEDS ORDERED: MORPHINE SULFATE INJ 2 MG/ML DISP.SYRIN IV PRN (21:30)
[2023-03-20] MEDS ORDERED: ALBUTEROL FS 2.5 MG/3 ML VIAL.NEB NEB PRN (21:30)
[2023-03-20] MEDS ORDERED: MAGNESIUM HYDROXIDE 30 ML UDC PO PRN (21:30)
[2023-03-20] MEDS ORDERED: NITROGLYCERIN 0.4 MG/TAB BOTTLE SL PRN (21:30)
[2023-03-20] MEDS ORDERED: ONDANSETRON HCL/PF 4 MG/2 ML VIAL IVP PRN (21:30)
[2023-03-20] MEDS ORDERED: IPRATROPIUM NEB FS 0.5 MG/2.5 ML AMPUL.NEB NEB PRN (21:30)
[2023-03-20] MEDS ORDERED: ZOLPIDEM TARTRATE 5 MG TABLET PO PRN (21:30)
[2023-03-20] MEDS ORDERED: Z GUARD REMEDY 4 OZ OINT TP PRN (21:30)
[2023-03-20] MEDS: BLOOD SUGAR DIAGNOSTIC 1 EACH STRIP IN SCH (22:00)
[2023-03-21 03:27] LABS: BASOPHILS % (AUTO) 0.5 % (0.0-2.0); EOSINOPHILS # (AUTO) 0.2 K/uL (0.0-0.7); EOSINOPHILS % (AUTO) 3.4 % (0.0-6.0); HEMATOCRIT 39 % (39-51); HEMOGLOBIN 12.9 g/dL (13.5-17.5); LYMPHOCYTES # (AUTO) 1.7 K/uL (0.8-4.8); LYMPHOCYTES % (AUTO) 29.3 % (20.0-44.0); MEAN CORPUSCULAR HEMOGLOBIN 30 PG (26.0-33.0); MEAN CORPUSCULAR HGB CONC 33 g/dl (31.0-36.0); MEAN CORPUSCULAR VOLUME 90 fL (80-96); MONOCYTES # (AUTO) 0.7 K/uL (0.1-1.30); MONOCYTES % (AUTO) 11.5 % (2.0-12.0); NEUTROPHILS # (AUTO) 3.3 K/uL (1.8-8.9); NEUTROPHILS % (AUTO) 55.3 % (43.0-81.0); PLATELET COUNT (AUTO) 156 K/uL (150-450); RED BLOOD CELL COUNT(AUTO) 4.34 MIL/uL (4.5-6.0); RED CELL DISTRIBUTION WIDTH 15.4 % (11.5-15.0); WHITE BLOOD COUNT (AUTO) 5.9 K/uL (4.3-11.0)
[2023-03-21 03:40] LABS: CALCIUM, SERUM 8.5 mg/dL (8.5-10.1); CARBON DIOXIDE 27 mmol/L (21-32); CHLORIDE 105 mmol/L (98-107); CREATININE 2.2 mg/dL (0.6-1.3); GLUCOSE 102 mg/dL (74-106); MAGNESIUM 1.8 mg/dL (1.8-2.4); PHOSPHORUS 4.8 mg/dL (2.5-4.9); POTASSIUM 3.9 mmol/L (3.5-5.1); SODIUM SERUM 140 mmol/L (136-145); UREA NITROGEN, BLOOD 44 mg/dL (7-18)
[2023-03-21 03:50] LABS: CHOLESTEROL 226 mg/dL (<200); HDL CHOLESTEROL 39 mg/dL (40-60); LDL 161 mg/dL (0-99); THYROID STIMULATING HORMONE 1.888 uIU/mL (0.358-3.74); TRIGLYCERIDES 109 mg/dL (30-150)
[2023-03-21] MEDS ORDERED: VERA180T25 PO (08:48)
[2023-03-21] MEDS ORDERED: VALS1TAB8 PO (08:48)
[2023-03-21] MEDS ORDERED: CLOP75TA15 PO (08:48)
[2023-03-21] MEDS: HEPARIN SODIUM, PORCINE 5000 UNITS/1 ML VIAL SQ SCH (09:00)
[2023-03-21] MEDS ORDERED: PANTOPRAZOLE 40 MG VIAL ONE (09:03)
[2023-03-21] MEDS ORDERED: CLOPIDOGREL BISULFATE 75 MG TABLET ONE (09:04)
[2023-03-21] MEDS ORDERED: ASPIRIN EC 81 MG TABLET.DR PO ONE (09:04)
[2023-03-21] MEDS ORDERED: LISINOPRIL (20MG) 20 MG TABLET ONE (09:04)
[2023-03-21] MEDS: PANTOPRAZOLE 40 MG VIAL IV SCH (09:15)
[2023-03-21] MEDS: CLOPIDOGREL BISULFATE 75 MG TABLET PO SCH (09:29)
[2023-03-21] MEDS: ASPIRIN EC 81 MG TABLET.DR PO SCH (09:29)
[2023-03-21] MEDS: LISINOPRIL (20MG) 20 MG TABLET PO SCH (09:30)
[2023-03-21] MEDS: VERAPAMIL SR 180 MG CAP PO SCH (09:31)
[2023-03-21] MEDS ORDERED: ATORVASTATIN 40 MG TABLET ONE (12:24)
[2023-03-21] MEDS: ATORVASTATIN 40 MG TABLET PO SCH (12:28)
[2023-03-21 20:00] VITALS: BP 121/50; TEMP 97.5; O2SAT 95
[2023-03-22] VITALS: BP 142/67; TEMP 97.5; O2SAT 98
[2023-03-22 04:00] VITALS: BP 117/49; TEMP 97.2; O2SAT 98
[2023-03-22] MEDS: INSULIN REGULAR, HUMAN 100 UNIT/ML 3 ML VIAL SQ PRN (07:31)
[2023-03-22 08:00] VITALS: BP 134/70; TEMP 97.8; O2SAT 98
[2023-03-22 08:56] VITALS: BP 134/70
[2023-03-22] MEDS: ACETAMINOPHEN 325 MG TABLET PO PRN (09:12)
[2023-03-22 10:37] LABS: BASOPHILS % (AUTO) 0.2 % (0.0-2.0); EOSINOPHILS # (AUTO) 0.2 K/uL (0.0-0.7); EOSINOPHILS % (AUTO) 3.1 % (0.0-6.0); HEMATOCRIT 40 % (39-51); LYMPHOCYTES % (AUTO) 19.8 % (20.0-44.0); MEAN CORPUSCULAR HEMOGLOBIN 30 PG (26.0-33.0); MEAN CORPUSCULAR HGB CONC 33 g/dl (31.0-36.0); MEAN CORPUSCULAR VOLUME 92 fL (80-96); MONOCYTES # (AUTO) 0.6 K/uL (0.1-1.30); MONOCYTES % (AUTO) 12.4 % (2.0-12.0); NEUTROPHILS # (AUTO) 3.3 K/uL (1.8-8.9); NEUTROPHILS % (AUTO) 64.5 % (43.0-81.0); PLATELET COUNT (AUTO) 158 K/uL (150-450); RED BLOOD CELL COUNT(AUTO) 4.35 MIL/uL (4.5-6.0); RED CELL DISTRIBUTION WIDTH 15.7 % (11.5-15.0); WHITE BLOOD COUNT (AUTO) 5.1 K/uL (4.3-11.0)
[2023-03-22 10:45] LABS: CALCIUM, SERUM 8.2 mg/dL (8.5-10.1); CARBON DIOXIDE 27 mmol/L (21-32); CHLORIDE 103 mmol/L (98-107); CREATININE 2.4 mg/dL (0.6-1.3); GLUCOSE 177 mg/dL (74-106); POTASSIUM 3.4 mmol/L (3.5-5.1); SODIUM SERUM 138 mmol/L (136-145); UREA NITROGEN, BLOOD 47 mg/dL (7-18)
[2023-03-22 10:51] LABS: ALANINE AMINOTRANSFERASE 20 U/L (12-78); ALBUMIN 3.1 g/dL (3.4-5.0); ALKALINE PHOSPHATASE 65 U/L (46-116); ASPARTATE AMINOTRANSFERASE 17 U/L (15-37); BILIRUBIN,TOTAL 1.7 mg/dL (0.2-1.0); PHOSPHORUS 4.2 mg/dL (2.5-4.9); TOTAL PROTEIN, SERUM 7.3 g/dL (6.4-8.2)
[2023-03-22] MEDS: ALBUTEROL FS 2.5 MG/3 ML VIAL.NEB NEB SCH (11:00)
[2023-03-22] MEDS: IPRATROPIUM NEB FS 0.5 MG/2.5 ML AMPUL.NEB NEB SCH (11:00)
[2023-03-22] MEDS: methylPREDNISolone SOD SUCC 125 MG/2ML VIAL IV SCH (11:03)
[2023-03-22] MEDS ORDERED: ATOR40TA PO (12:13)
[2023-03-23] MEDS ORDERED: PANTOPRAZOLE 40 MG TABLET.DR PO SCH (09:00)
== END 2023-03-22 14:30 | disposition home health service (06) | DRG 303 ==
LOC: ER 17:34 → TRANSITION 03-21 07:39 → TELE 03-21 17:44
PROVIDERS: ADMIT Nurse Practitioner Acute Care
DX: I25.10 Atherosclerotic heart disease of native coronary artery without angina pectoris (principal); N17.9 Acute kidney failure, unspecified; E78.5 Hyperlipidemia, unspecified; I12.9 Hypertensive chronic kidney disease with stage 1 through stage 4 chronic kidney disease, or unspecified chronic kidney disease; N18.30 Chronic kidney disease, stage 3 unspecified; Z87.19 Personal history of other diseases of the digestive system; K21.9 Gastro-esophageal reflux disease without esophagitis; Z98.890 Other specified postprocedural states; F17.200 Nicotine dependence, unspecified, uncomplicated; Z79.899 Other long term (current) drug therapy; E11.22 Type 2 diabetes mellitus with diabetic chronic kidney disease; J44.9 Chronic obstructive pulmonary disease, unspecified; G47.33 Obstructive sleep apnea (adult) (pediatric); Z79.4 Long term (current) use of insulin
CPT/HCPCS: 36415; 71045-TC; 80048-TC; 80053-TC; 80061-TC; 82962-TC; 83735-TC; 83880; 84100-TC; 84443-TC; 84484-TC; 85025-TC; 93307-TC; C9113; G0378; J1644; J1815; J2270; J2405; J2930

== ENCOUNTER 2023-05-26 20:19 | Inpatient (IN) | payer MEDICARE, OTHER ==
[~2023-05-26] VITALS: Ht 160 cm; Wt 74.8 kg
[~2023-05-26 20:19] MED LIST changes: +ATOR40TA PO; +CLOP75TA15 PO; -PANT40TA2 PO; +VALS1TAB8 PO; +VERA180T25 PO
[2023-05-26 20:57] LABS: BASOPHILS # (AUTO) 0.1 K/uL (0.0-0.2); BASOPHILS % (AUTO) 0.8 % (0.0-2.0); EOSINOPHILS # (AUTO) 0.2 K/uL (0.0-0.7); EOSINOPHILS % (AUTO) 2.3 % (0.0-6.0); HEMATOCRIT 41 % (39-51); HEMOGLOBIN 13.4 g/dL (13.5-17.5); LYMPHOCYTES # (AUTO) 1.2 K/uL (0.8-4.8); LYMPHOCYTES % (AUTO) 18.5 % (20.0-44.0); MEAN CORPUSCULAR HEMOGLOBIN 29 PG (26.0-33.0); MEAN CORPUSCULAR HGB CONC 32 g/dl (31.0-36.0); MEAN CORPUSCULAR VOLUME 90 fL (80-96); MONOCYTES # (AUTO) 0.7 K/uL (0.1-1.30); MONOCYTES % (AUTO) 10.9 % (2.0-12.0); NEUTROPHILS # (AUTO) 4.5 K/uL (1.8-8.9); NEUTROPHILS % (AUTO) 67.5 % (43.0-81.0); PLATELET COUNT (AUTO) 154 K/uL (150-450); RED BLOOD CELL COUNT(AUTO) 4.58 MIL/uL (4.5-6.0); RED CELL DISTRIBUTION WIDTH 15.2 % (11.5-15.0); WHITE BLOOD COUNT (AUTO) 6.7 K/uL (4.3-11.0)
[2023-05-26 21:09] LABS: ALANINE AMINOTRANSFERASE 44 U/L (12-78); ALBUMIN 3.6 g/dL (3.4-5.0); ALKALINE PHOSPHATASE 90 U/L (46-116); ASPARTATE AMINOTRANSFERASE 27 U/L (15-37); BILIRUBIN,DIRECT 0.2 mg/dL (0.0-0.2); BILIRUBIN,TOTAL 0.9 mg/dL (0.2-1.0); CALCIUM, SERUM 8.7 mg/dL (8.5-10.1); CARBON DIOXIDE 24 mmol/L (21-32); CHLORIDE 106 mmol/L (98-107); GLUCOSE 140 mg/dL (74-106); SODIUM SERUM 140 mmol/L (136-145); TOTAL PROTEIN, SERUM 7.9 g/dL (6.4-8.2); UREA NITROGEN, BLOOD 40 mg/dL (7-18)
[2023-05-26] MEDS ORDERED: ZOLPIDEM TARTRATE 5 MG TABLET PO PRN (22:00)
[2023-05-26] MEDS ORDERED: MAGNESIUM HYDROXIDE 30 ML UDC PO PRN (22:00)
[2023-05-26] MEDS ORDERED: IV NS 0.9% 1,000 ML IV PRN (22:00)
[2023-05-26] MEDS ORDERED: Z GUARD REMEDY 4 OZ OINT TP PRN (22:00)
[2023-05-26] MEDS ORDERED: ACETAMINOPHEN 325 MG TABLET PO PRN (22:00)
[2023-05-26] MEDS ORDERED: MAG HYDROX/AL HYDROX/SIMETH 30 ML UDC PO PRN (22:00)
[2023-05-26] MEDS ORDERED: ONDANSETRON HCL/PF 4 MG/2 ML VIAL IVP PRN (22:00)
[2023-05-27 01:21] VITALS: BP 173/98; TEMP 97.8; O2SAT 97
[2023-05-27 05:41] VITALS: BP 120/61; TEMP 98.2; O2SAT 94
[2023-05-27 07:35] LABS: BASOPHILS % (AUTO) 0.7 % (0.0-2.0); EOSINOPHILS # (AUTO) 0.3 K/uL (0.0-0.7); EOSINOPHILS % (AUTO) 3.8 % (0.0-6.0); HEMATOCRIT 38 % (39-51); HEMOGLOBIN 12.4 g/dL (13.5-17.5); LYMPHOCYTES # (AUTO) 1.7 K/uL (0.8-4.8); LYMPHOCYTES % (AUTO) 25.3 % (20.0-44.0); MEAN CORPUSCULAR HEMOGLOBIN 30 PG (26.0-33.0); MEAN CORPUSCULAR HGB CONC 33 g/dl (31.0-36.0); MEAN CORPUSCULAR VOLUME 91 fL (80-96); MONOCYTES # (AUTO) 0.8 K/uL (0.1-1.30); MONOCYTES % (AUTO) 12.4 % (2.0-12.0); NEUTROPHILS # (AUTO) 3.8 K/uL (1.8-8.9); NEUTROPHILS % (AUTO) 57.8 % (43.0-81.0); PLATELET COUNT (AUTO) 147 K/uL (150-450); RED BLOOD CELL COUNT(AUTO) 4.13 MIL/uL (4.5-6.0); RED CELL DISTRIBUTION WIDTH 15.5 % (11.5-15.0); WHITE BLOOD COUNT (AUTO) 6.6 K/uL (4.3-11.0)
[2023-05-27 07:52] LABS: CALCIUM, SERUM 8.4 mg/dL (8.5-10.1); CARBON DIOXIDE 23 mmol/L (21-32); CHLORIDE 109 mmol/L (98-107); GLUCOSE 118 mg/dL (74-106); POTASSIUM 3.6 mmol/L (3.5-5.1); SODIUM SERUM 141 mmol/L (136-145); UREA NITROGEN, BLOOD 37 mg/dL (7-18)
[2023-05-27 08:00] VITALS: BP 132/59; TEMP 98.1; O2SAT 93
[2023-05-27 08:15] LABS: PHOSPHORUS 3.7 mg/dL (2.5-4.9)
[2023-05-27] MEDS: CLOPIDOGREL BISULFATE 75 MG TABLET PO SCH (08:32)
[2023-05-27] MEDS: VERAPAMIL SR 180 MG CAP PO SCH (08:35)
[2023-05-27] MEDS: ATORVASTATIN 40 MG TABLET PO SCH (08:36)
[2023-05-27] MEDS: HYDROCHLOROTHIAZIDE 25 MG TABLET PO SCH (08:36)
[2023-05-27] MEDS: ASPIRIN 81 MG TAB.CHEW PO SCH (08:36)
[2023-05-27] MEDS ORDERED: AMLO10TA4 PO (08:44)
[2023-05-27] MEDS ORDERED: SACU1TAB7 PO (08:44)
[2023-05-27] MEDS ORDERED: MYRBETRIQ PO (08:44)
[2023-05-27] MEDS: VALSARTAN 80 MG TABLET PO SCH (08:46)
[2023-05-27 08:49] LABS: CHOLESTEROL 221 mg/dL (<200); HDL CHOLESTEROL 46 mg/dL (40-60); LDL 136 mg/dL (0-99); TRIGLYCERIDES 106 mg/dL (30-150)
[2023-05-27] MEDS ORDERED: Medication Not On Formulary EA (Valsartan/Hydrochlorothiazide (Diovan Hct 320-25 Mg Tabl PO SCH (09:00)
[2023-05-27 12:00] VITALS: BP 113/60; TEMP 98.2; O2SAT 94
[2023-05-27] MEDS ORDERED: SACUBITRIL/VALSARTAN 1 EACH TABLET PO SCH (17:00)
[2023-05-27] MEDS ORDERED: ENTRESTO PO SCH (17:00)
[2023-05-27] MEDS ORDERED: AMLODIPINE BESYLATE 10 MG TABLET PO SCH (17:00)
[2023-05-27] MEDS ORDERED: MYRBETRIQ 25 MG PO SCH (22:00)
== END 2023-05-27 17:05 | disposition left against medical advice (07) | DRG 302 ==
LOC: ER 20:25 → TELE 23:26
PROVIDERS: ADMIT Nurse Practitioner Acute Care; ATTEND Internal Medicine
DX: I25.110 Atherosclerotic heart disease of native coronary artery with unstable angina pectoris (principal); N17.0 Acute kidney failure with tubular necrosis; I12.9 Hypertensive chronic kidney disease with stage 1 through stage 4 chronic kidney disease, or unspecified chronic kidney disease; N18.9 Chronic kidney disease, unspecified; J44.9 Chronic obstructive pulmonary disease, unspecified; K40.90 Unilateral inguinal hernia, without obstruction or gangrene, not specified as recurrent; E11.22 Type 2 diabetes mellitus with diabetic chronic kidney disease; D63.1 Anemia in chronic kidney disease; E78.5 Hyperlipidemia, unspecified; Z98.890 Other specified postprocedural states; Z79.899 Other long term (current) drug therapy; Z79.02 Long term (current) use of antithrombotics/antiplatelets; Z87.891 Personal history of nicotine dependence
CPT/HCPCS: 36415; 71045-TC; 80048-TC; 80061-TC; 80076-TC; 83735-TC; 84100-TC; 84484-TC; 85025-TC; A4223; G0378; J7030